=== PATIENT | female | born 1990 | race Caucasian/White ===

== ENCOUNTER 2021-12-12 11:07 | Inpatient (IN) | payer OTHER ==
[~2021-12-12] VITALS: Ht 154.9 cm; Wt 40.8 kg
[2021-12-12 13:09] LABS: WHITE BLOOD COUNT 7.7 K/UL (4.5-11.0)
[2021-12-12 13:40] LABS: BUN/CREATININE RATIO 10 (0-10)
[2021-12-12] MEDS ORDERED: SUBUTEX 8 MG TAB8 MG SL (18:08)
[2021-12-12] MEDS ORDERED: WELLBUTRIN XL150 MG PO (18:09)
[2021-12-13 06:39] LABS: HEMOGLOBIN 10.9 gm/dl (12.3-15.3); WHITE BLOOD COUNT 6.7 K/UL (4.5-11.0)
[2021-12-13 07:13] LABS: BUN/CREATININE RATIO 13 (0-10)
--- NOTE | 2021-12-14 03:29 | NUR ---
PT REFUSED AM LABS TO BE DONE AT THIS TIME
[2021-12-14 07:43] LABS: BUN/CREATININE RATIO 10 (0-10)
[2021-12-14 09:04] LABS: HEMOGLOBIN 10.1 gm/dl (12.3-15.3); RED BLOOD COUNT 3.69 M/UL (4.00-5.10); WHITE BLOOD COUNT 7.3 K/UL (4.5-11.0)
[2021-12-15 05:54] LABS: HEMOGLOBIN 10.3 gm/dl (12.3-15.3); RED BLOOD COUNT 3.82 M/UL (4.00-5.10)
[2021-12-15 05:58] LABS: WHITE BLOOD COUNT 4.3 K/UL (4.5-11.0)
[2021-12-15 06:13] LABS: BUN/CREATININE RATIO 12 (0-10)
[2021-12-15] MEDS ORDERED: FERROUS GLUCON324 M1 PO (15:34)
[2021-12-15] MEDS ORDERED: BACTRIM DS TAB1 EACH PO (15:34)
[2021-12-15] MEDS ORDERED: NICOTINE PATCH1 EAC2 TD (15:34)
[2021-12-15] MEDS ORDERED: PROAIR HFA8.5 GM INH (15:50)
[2021-12-15] MEDS ORDERED: POTASSIUM CHLO10 ME1 PO (15:50)
[2021-12-15] MEDS ORDERED: MIDODRINE HCL2.5 MG PO (15:50)
== END 2021-12-15 17:10 | disposition home or self-care (01) | DRG 603 ==
LOC: ER1 11:07 → MED SURG 4 17:04 → CDU 17:04 → MED SURG 4 18:39
PROVIDERS: Internal Medicine; Physician Assistant; ADMIT Internal Medicine
PROC: B24BZZZ Ultrasonography of Heart with Aorta (ICD-10-PCS; principal; 2021-12-13)
DX: L03.317 Cellulitis of buttock (principal); T78.2XXA Anaphylactic shock, unspecified, initial encounter; Z20.822 Contact with and (suspected) exposure to COVID-19; F11.20 Opioid dependence, uncomplicated; E44.0 Moderate protein-calorie malnutrition; Z68.1 Body mass index [BMI] 19.9 or less, adult; L02.31 Cutaneous abscess of buttock; F19.10 Other psychoactive substance abuse, uncomplicated; D50.9 Iron deficiency anemia, unspecified; F17.210 Nicotine dependence, cigarettes, uncomplicated; J45.909 Unspecified asthma, uncomplicated; M60.9 Myositis, unspecified; E87.6 Hypokalemia; B19.20 Unspecified viral hepatitis C without hepatic coma; I95.89 Other hypotension; E86.0 Dehydration; Z88.0 Allergy status to penicillin; Z83.79 Family history of other diseases of the digestive system; Z88.8 Allergy status to other drugs, medicaments and biological substances
CPT/HCPCS: ECHO; 36415; 71045; 72192; 73502; 73700; 80048; 80053; 80202; 80307; 81001; 82550; 82553; 83540; 83550; 83605; 84484; 84702; 85025; 85027; 85652; 86140; 87040; 87086; 93005; 93306; 96374; 96375; 99285; J0692; J1956; J3370; J7030; J7070; U0002

== ENCOUNTER → 2022-02-01 | Emergency (ER) | payer OTHER ==
[~2022-02-01] MED LIST: BACTRIM DS TAB1 EACH PO; CLEOCIN HCL300 MG PO; FERROUS GLUCON324 M1 PO; IBU600 MG PO; MIDODRINE HCL2.5 MG PO; NICOTINE PATCH1 EAC2 TD; POTASSIUM CHLO10 ME1 PO; PROAIR HFA8.5 GM INH; SUBUTEX 8 MG TAB8 MG SL; WELLBUTRIN XL150 MG PO
== END | disposition home or self-care (01) ==
LOC: ER1 16:03
DX: K02.9 Dental caries, unspecified (principal); F19.239 Other psychoactive substance dependence with withdrawal, unspecified; L98.9 Disorder of the skin and subcutaneous tissue, unspecified; Z88.0 Allergy status to penicillin; F17.200 Nicotine dependence, unspecified, uncomplicated
CPT/HCPCS: 99283